=== PATIENT | female | born 1965 | race Two or more races ===

== ENCOUNTER 2018-11-17 07:25 | Outpatient (CLI) | payer OTHER ==
--- NOTE | 2018-11-17 16:20 | MRI Report ---
Reason: PAIN IN UNSPECIFIED SHOUDLER Procedure Date: 11/17/2018 Accession Number: [id number] / [id number] Procedure: MRI - Shoulder RT W/O CPT Code: FULL RESULT: EXAM: RIGHT SHOULDER MRI WITHOUT CONTRAST EXAM DATE: 11/17/2018 08:05 AM. CLINICAL HISTORY: Pain in unspecified shoulder. COMPARISON: None. TECHNIQUE: Multiplanar, multisequence T1-weighted and fluid-sensitive sequences of the shoulder without contrast. Other: None. FINDINGS: Rotator cuff: Rotator cuff tendons appear intact. Small amount of increased intrasubstance signal at the supraspinatus. There may be some fraying at the bursal surface. No evidence of a high-grade or full-thickness rotator cuff tear. No rotator cuff muscle atrophy or fatty replacement. Long head biceps tendon: Some increased intrasubstance signal of the intra-articular portion. Otherwise intact. Labrum: Intact. No tear demonstrated on this non-arthrographic study. Bones and articular surfaces: Mild cartilage thinning over the medial aspect of the humeral head. No full-thickness articular cartilage defect. Joint capsule. Some thickening and increased T2 signal involving the rotator interval and axillary joint capsule. Acromioclavicular joint: Normal appearance. Type II acromion. Small amount of fluid in the subacromial/subdeltoid bursa. IMPRESSION: 1. Some edema and thickening of the joint capsule may reflect capsular sprain or adhesive capsulitis. 2. Mild subacromial/subdeltoid bursitis. 3. Mild tendinosis involving the intra-articular long head biceps. 4. Mild supraspinatus tendinosis and some fraying at the bursal surface. [facility]
== END 2018-11-17 07:26 | disposition home or self-care (01) ==
LOC: DI 07:25
PROVIDERS: ATTEND Family Medicine
DX: M75.51 Bursitis of right shoulder (principal); M75.81 Other shoulder lesions, right shoulder